=== PATIENT | female | born 1985 | race Caucasian/White ===

== ENCOUNTER → 2017-07-15 | Day surgery (SDC) | payer SELFPAY ==
[~2017-07-15] VITALS: Ht 154.9 cm; Wt 77.1 kg
--- NOTE | 2017-07-15 17:33 | Operative Report ---
Operative/Inv Procedure Report Surgery Date: 07/15/17 Name of Procedure: Abdominoplasty liposuction flanks Pre-Operative Diagnosis: Abdominal lipodystrophy Post-Operative Diagnosis: Same Estimated Blood Loss: scant (200) Surgeon/Window Assembler: Emerson Delatorre MD Anesthesia: general endotracheal tube Operative/Procedure Note Note: The patient was counseled regards to the procedure the alternatives risks and expected outcomes as relates to request for surgical intervention to treat abdominal wall laxity and lipodystrophy of the trunk. The patient is requesting liposuction of the flanks this morning. She has fullness in the lateral flanks and is a reasonable candidate for liposuction. We discussed the additional risks that can be seen in liposuction and discussed numbness to the skin bruising bleeding open wounds and similar additional risks as seen in the [facility] informed consent which she has returned sign. She has no questions regarding the forms was marked in the standing position with a tape measure. She was shown the areas that would be treated and those that would not including the areas of liposuction. Once agreed informed consent was signed. She was taken to the operating placed supine on the table. Venodyne boots are placed and then general anesthesia was established intravenous antibiotics given. The abdominal wall and flanks were prepped and draped in usual sterile fashion. Incision was performed and the lower portion of the abdominal wall flap and elevated up to the umbilicus which was freed from the surrounding tissues. A central tunnel was made up to the xiphoid. 2 layer imbrication was carried out of the diastases. Still some laxity remained an additional layer of oh Prolenes was placed. The abdominal wall tension was good after assessment. She was put in the semi-Venegas's position and a 3 layer closure was carried out. Of note tumescent fluid was placed in the flanks and approximately 1100 mL of aspirate was removed with the tumescent technique. 3 layer closure of the umbilicus was performed as well. 1 drains were placed in the abdominal wall flap.
== END ==
LOC: STS 01:38
DX: Z41.1 Encounter for cosmetic surgery (principal); E65 Localized adiposity; E66.9 Obesity, unspecified; E03.9 Hypothyroidism, unspecified; R49.0 Dysphonia; F17.290 Nicotine dependence, other tobacco product, uncomplicated; Z79.899 Other long term (current) drug therapy
CPT/HCPCS: 81025; C9399; J0131; J0171; J1885; J2250; J2405